=== PATIENT | male | born 1980 | race Caucasian/White ===

== ENCOUNTER 2017-10-25 16:08 | Inpatient (IN) | payer OTHER ==
[~2017-10-25] VITALS: Ht 175.3 cm; Wt 121.6 kg
[2017-10-25] MEDS ORDERED: NACL 0.9% 1,000 ML IV ONE (16:20)
[2017-10-25] MEDS ORDERED: ASPIRIN 325 MG TAB PO ONE (16:20)
[2017-10-25] MEDS ORDERED: VANCOMYCIN 1,000 MG in DEXTROSE 5% 250 ML IV ONE (16:25)
[2017-10-25] MEDS ORDERED: MORPHINE SULFATE 4 MG/ML SYR IVP ONE (16:25)
[2017-10-25] MEDS ORDERED: PIPERACILLIN/TAZOBACTAM 3.375 GM in DEXTROSE 5% 50 ML IV ONE (16:25)
[2017-10-25 16:26] VITALS: BP 108/68
[2017-10-25] MEDS ORDERED: INSULIN REGULAR, HUMAN 100 UNIT/ML VIAL IVP ONE (16:35)
--- NOTE | 2017-10-25 16:37 | NUR ---
PT TAKEN TO CT VIA GURNEY BY WET TRIMMER MEHRDAD
--- NOTE | 2017-10-25 16:45 | NUR ---
PATIENT PRESENTS Tc/o general weakness, right 4th digit swelling redness, fever, bodyaches, malaise x 2 days hx---dm, htn, ANXIETY, CVA, R 3 TOES AMPUTATION rx----. DENIES N/V/D; SKIN IS PINK/WARM/DRY; AAOX4 ; LUNGS CLEAR BL; HR EVEN AND REGULAR; PT DENIES ANY FEVER, CP, SOB, OR COUGH AT THIS TIME; PATIENT STATES PAIN OF 10/10 AT THIS TIME; VSS; PATIENT POSITIONED FOR COMFORT; HOB ELEVATED; BEDRAILS UP X2; BED DOWN. ER MD MADE AWARE OF PT STATUS.
[2017-10-25 17:00] LABS: ANION GAP 18.7 (8-16); CARBON DIOXIDE 23.5 mmol/L (21-32); CREATININE 1.3 mg/dL (0.7-1.3); POTASSIUM 4.2 mmol/L (3.5-5.1)
[2017-10-25 17:13] LABS: BASOPHILS # (AUTO) 0.1 K/uL (0.00-0.22); EOSINOPHILS # (AUTO) 0.2 K/uL (0-0.4); EOSINOPHILS % (AUTO) 2.2 % (0.0-4.0); HEMATOCRIT 41.8 % (36-52); HEMOGLOBIN 13.7 g/dL (12.0-18.0); LYMPHOCYTES % (AUTO) 21.2 % (20.5-51.1); MEAN CORPUSCULAR HEMOGLOBIN 27 pg (27-31); MEAN CORPUSCULAR HGB CONC 33 g/dL (33-37); MEAN CORPUSCULAR VOLUME 81.7 fL (80-94); MONOCYTES # (AUTO) 0.4 K/uL (0.8-1.0); MONOCYTES % (AUTO) 4.2 % (1.7-9.3); NEUTROPHILS # (AUTO) 6.7 K/uL (1.8-7.7); NEUTROPHILS % (AUTO) 71.4 % (42.2-75.2); PLATELET COUNT (AUTO) 355 K/uL (140-450); RED BLOOD CELL COUNT(AUTO) 5.12 MIL/uL (4.20-6.10); RED CELL DISTRIBUTION WIDTH 11.9 % (11.6-13.7); WHITE BLOOD COUNT (AUTO) 9.4 K/uL (4.8-10.8)
[2017-10-25] MEDS ORDERED: VANCOMYCIN 1,000 MG VIAL ONE (17:13)
[2017-10-25] MEDS ORDERED: PIPERACILLIN/TAZOBACTAM 3.375 GM VIAL IV ONE (17:13)
[2017-10-25 17:16] LABS: ALBUMIN 2.9 g/dL (3.4-5.0); TOTAL BILIRUBIN 0.3 mg/dL (0.0-1.0)
[2017-10-25] MEDS ORDERED: NACL 0.9% 3,000 ML IV ONE (17:20)
[2017-10-25] MEDS ORDERED: HUM SUBQ (17:42)
[2017-10-25] MEDS ORDERED: ALPR0.5T2 PO (17:42)
[2017-10-25] MEDS ORDERED: ONDANSETRON 4 MG/2 ML VIAL IM/IVP PRN (17:55)
[2017-10-25] MEDS ORDERED: HYDROcodone/APAP 7.5/325 MG 1 TAB PO PRN (17:55)
[2017-10-25] MEDS ORDERED: DOCUSATE SODIUM 100 MG GELCAP PO PRN (17:55)
[2017-10-25] MEDS ORDERED: ACETAMINOPHEN 325 MG TAB PO PRN (17:55)
[2017-10-25] MEDS ORDERED: LORazepam 0.5 MG TAB PO PRN (17:55)
--- NOTE | 2017-10-25 18:00 | NUR ---
PER PT "FEELING BETTER" PAIN 5/10 POST MEDICATION, AT BEDSIDE, WILL CONTINUE TO MONITOR
[2017-10-25] MEDS ORDERED: DEXTROSE 50% 50 ML SYR IVP PRN (18:05)
[2017-10-25] MEDS ORDERED: NACL 0.9% 1,000 ML IV SCH (18:10)
--- NOTE | 2017-10-25 18:35 | NUR ---
RECEIVED PATIENT FROM ER VIA GURNEY. PATIENT AMBULATED TO THE BED. RECEIVED BEDSIDE REPORT FROM SHE EMERY. PATIENT IS AAOX4, NO SIGNS AND SYMPTOMS OF ACUTE DISTRESS NOTED AT THIS TIME. PATIENT HAS IV TO THE RIGHT HAND 20G, INFUSING ZOSYN AT THIS TIME AND HAS NS BOLUS. ORIENTED PATIENT TO THE ROOM, EXPLAINED CALL LIGHT AND PATIENT VERBALIZED UNDERSTANDING. BED IN LOWEST POSITION, SIDERAILS UP X2, CALL LIGHT PLACED WITHIN REACH. WILL CONTINUE TO MONITOR.
[2017-10-25 18:39] LABS: APPEARANCE,URINE CLEAR (CLEAR); BILIRUBIN,URINE NEGATIVE (NEGATIVE); BLOOD, URINE TRACE-I (NEGATIVE); COLOR,URINE YELLOW (YELLOW); LEUKOCYTE ESTERASE ,URINE NEGATIVE (NEGATIVE); NITRITE, URINE NEGATIVE (NEGATIVE); UGLUCOSE 3+ (NEGATIVE)
[2017-10-25 18:40] LABS: ANION GAP 20.2 (8-16); CARBON DIOXIDE 22.2 mmol/L (21-32); CREATININE 1.4 mg/dL (0.7-1.3); POTASSIUM 4.4 mmol/L (3.5-5.1)
--- NOTE | 2017-10-25 18:40 | NUR ---
Patient will be admitted to care of DR. LADD .WILL BE GOING TO TELE . Will go to room 105B . Belongings list completed. Report to SHE SIERRA . 3L ORDER WAS NOT ADMINISTERED DUE UNAVAILABLE ADDITIONAL IV ACCESS DUE TO VARIOUS MEDICATION ADMINISTRATION.
[2017-10-25 18:53] LABS: RBC,URINE 0-5 (RARE) /HPF (0-5); WBC,URINE 0-5 (RARE) /HPF (0-5)
[2017-10-25 18:57] LABS: FREE T4 (FREE THYROXINE) 0.96 ng/dL (0.76-1.46); MAGNESIUM 1.8 mg/dL (1.8-2.4); PHOSPHORUS 2.6 mg/dL (2.5-4.9); THYROID STIMULATING HORMONE 2.25 uIU/mL (0.34-3.74)
[2017-10-25 19:01] LABS: PROTHROMBIN TIME 9.8 secs (10.8-13.4)
[2017-10-25 19:04] LABS: BARBITURATE, URINE NEG. ng/ml (NEG <=200); BENZODIAZEPINE, URINE NEG. ng/mL (NEG <=200); CANNABINOID, URINE NEG. ng/mL (NEG <=50); COCAINE, URINE NEG. ng/mL (NEG <=300); OPIATE, URINE NEG. ng/mL (NEG <=2000); PHENCYCLIDINE SCREEN,URINE NEG. ng/mL (NEG <=25)
[2017-10-25 19:30] VITALS: BP 130/87
--- NOTE | 2017-10-25 19:33 | NUR ---
RECEIVED PT IN STABLE CONDITION FROM AM NURSE. PT IS A NEW ADMIT . AWAKE,ALERT AND ORIENTED X4. AMBULATORY. TELE -SR. CAME DUE TO CELLULITIS RT RT HAND,CHEST PAIN. VANCOMYCIN IV STILL INFUSING , ER STARTED ON THE RT FA#20. CLEAR AND PATENT. MRSA NARES SPECIMEN COLLECTED . TO BE SEND TO LAB.ORIENTED TO HOSPITAL ROUTINES. VISITING HOURS, USE OF CALL LIGHT W/C IS PLACED WITHIN EASY REACH. BED ON LOW POSITION. PLAN OF CARE DISCUSSED AND VERBALIZED UNDERSTANDING. URINAL ALSO WITHIN REACH. WILL CONTINUE TO MONITOR.
--- NOTE | 2017-10-25 19:33 | NUR ---
ENDORSED PATIENT TO PRODUCT MARKETING ENGINEER RN FOR CONTINUITY OF CARE. PATIENT IN STABLE CONDITION.
--- NOTE | 2017-10-25 20:00 | NUR ---
DR. OSORIO, RESIDENT SEEN PT . ACCORDING TO INTERVIEWED PT HAS ALLERGY TO PCN. SO ZOSYN TO BE DC.D AND BE CHANGED
--- NOTE | 2017-10-25 20:30 | NUR ---
XR TECH TO GET PT FOR SOME TEST, CAROTID US, US ARTERIAL BLE AND US VENOUS BLE BUT PT WANTS TO GET PAIN MED FIRST. WILL CALL X RAY DEPT WHEN PT IS READY AFTER THE PAIN MED IS GIVEN.
[2017-10-25] MEDS ORDERED: KETOROLAC 15 MG/ML VIAL IM PRN (20:45)
[2017-10-25] MEDS ORDERED: INSU100S45 SUBQ (20:50)
[2017-10-25] MEDS: NACL 0.9% 1,000 ML IV SCH (20:52)
[2017-10-25] MEDS ORDERED: INSU100S53 SC (20:52)
[2017-10-25] MEDS ORDERED: ASPI-1677 PO (20:56)
[2017-10-25] MEDS ORDERED: MECLIZINE 25 MG TAB PO PRN (21:00)
[2017-10-25] MEDS: BLOOD GLUCOSE MONITORING 1 DEV DEV FS SCH (21:03)
[2017-10-25] MEDS: MORPHINE SULFATE 2 MG/ML SYR IVP PRN (21:12)
[2017-10-25] MEDS: INSULIN LANTUS 100 UNITS/ML 10 ML VIAL SUBQ SCH (21:49)
[2017-10-25] MEDS: INSULIN LISPRO SLIDING SCALE 100 UNITS/ML VIAL SUBQ PRN (21:50)
--- NOTE | 2017-10-25 22:50 | NUR ---
CALLED XR DEPT FOR PT US VENOUS BLE AND CAROTID EPHRAIM AND US ARTERIAL BLE, THE TECH STILL IN ER FOR SOME TEST . WILL FOLLOW UP AGAIN LATER.
[2017-10-25] MEDS ORDERED: NITROGLYCERIN 0.4 MG TAB SL PRN (23:00)
[2017-10-25] MEDS: LEVOFLOXACIN 750 MG/D5W PREMIX 150 ML IV SCH (23:44)
[2017-10-25 23:55] VITALS: BP 141/81
[2017-10-26] MEDS ORDERED: PIPER/TAZO 3.375GM/D5W PREMIX 50 ML IV SCH
[2017-10-26] MEDS ORDERED: PIPERACILLIN/TAZOBACTAM 3.375 GM in DEXTROSE 5% 50 ML IV SCH ×2
--- NOTE | 2017-10-26 00:43 | NUR ---
DR. OSORIO, RESIDENT MADE AWARE THAT THE US CAROTID EPHRAIM, VENOUS BLE, ARTERIAL BLE NOT DONE YET. WILL BE DONE HEATHER AM . HE SAID IT IS OK, IT'S A ROUTINE ORDER.
[2017-10-26] MEDS: MORPHINE SULFATE 2 MG/ML SYR IVP PRN ×3 (00:53→08:27)
[2017-10-26] MEDS ORDERED: LACTULOSE 20 GM/30 ML UDC PO ONE (01:20)
[2017-10-26] MEDS: NACL 0.9% 1,000 ML IV SCH (03:36)
[2017-10-26 03:45] VITALS: BP 150/86
[2017-10-26] MEDS ORDERED: CLINDAMYCIN 600 MG/4 ML VIAL ONE (04:27)
[2017-10-26] MEDS: CLINDAMYCIN 600 MG in DEXTROSE 5% 50 ML IV SCH ×3 (04:56→20:34)
--- NOTE | 2017-10-26 04:59 | NUR ---
PT AWAKE AND C/O PAIN ON THE RT HAND FINGER, MEDICATED ORDERED.
[2017-10-26] MEDS ORDERED: LACTULOSE 20 GM/30 ML UDC PO SCH (05:15)
[2017-10-26] MEDS: BLOOD GLUCOSE MONITORING 1 DEV DEV FS SCH ×4 (06:16→20:27)
[2017-10-26] MEDS: INSULIN LISPRO SLIDING SCALE 100 UNITS/ML VIAL SUBQ PRN ×3 (06:17→20:31)
--- NOTE | 2017-10-26 06:17 | NUR ---
BLOOD SUGAR WAS CHECKED THIS AM RESULT 313. INSULIN COVERAGE GIVEN ORDERED
--- NOTE | 2017-10-26 07:15 | NUR ---
ENDORSED PT IN STABLE CONDITION TO AM NURSE.
--- NOTE | 2017-10-26 07:16 | NUR ---
RECEIVED REPORT FROM TAPER AND FLOATER NURSE AT BEDSIDE FOR CONTINUITY OF CARE. PT IS SLEEPING. IV ON R FA 20 NS INFUSING AT 120ML/HR. K PAD ON HIS R HAND; CELLULITIS ON HIS R HAND, 4TH FINGER SWOLLEN. PT ON TELE, SR. LBM THS MORNING. NO SIGNS OF DISTRESS. WILL CONTINUE TO MONITOR PT.
[2017-10-26 08:00] VITALS: BP 116/71
--- NOTE | 2017-10-26 08:00 | NUR ---
V/S WITHIN NORMAL RANGE. C/O PAIN IN R HAND. 03/08. WILL MEDICATE ALONG WITH MORNING MEDS.
[2017-10-26] MEDS: ASPIRIN 81 MG TAB.CHEW PO SCH (08:26)
[2017-10-26] MEDS: METOPROLOL SUCCINATE 50 MG TABER PO SCH (08:26)
[2017-10-26] MEDS: LISINOPRIL 20 MG TAB PO SCH (08:26)
--- NOTE | 2017-10-26 08:30 | NUR ---
ADMINISTERED MORNING MEDS. PT TOLERATED WELL. WILL CONTINUE TO MONITOR PT.
[2017-10-26 08:34] LABS: T4 (THYROXINE) 6.3 ug/dL (4.5-12.0)
[2017-10-26] MEDS ORDERED: DOCUSATE SODIUM 100 MG GELCAP PO PRN (09:05)
[2017-10-26] MEDS ORDERED: LORazepam 2 MG/ML VIAL IVP PRN (09:05)
[2017-10-26] MEDS ORDERED: HYDROcodone/APAP 7.5/325 MG 1 TAB PO PRN (09:05)
[2017-10-26] MEDS ORDERED: ONDANSETRON 4 MG/2 ML VIAL IVP PRN (09:05)
[2017-10-26 09:23] LABS: BASOPHILS # (AUTO) 0.2 K/uL (0.00-0.22); BASOPHILS % (AUTO) 2.2 % (0.0-2.0); EOSINOPHILS # (AUTO) 0.2 K/uL (0-0.4); EOSINOPHILS % (AUTO) 2.5 % (0.0-4.0); HEMATOCRIT 40.5 % (36-52); HEMOGLOBIN 13.5 g/dL (12.0-18.0); LYMPHOCYTES # (AUTO) 1.8 K/uL (2.0-11.5); MEAN CORPUSCULAR HEMOGLOBIN 27 pg (27-31); MEAN CORPUSCULAR HGB CONC 33 g/dL (33-37); MEAN CORPUSCULAR VOLUME 81.8 fL (80-94); MONOCYTES # (AUTO) 0.5 K/uL (0.8-1.0); MONOCYTES % (AUTO) 5.6 % (1.7-9.3); NEUTROPHILS # (AUTO) 5.8 K/uL (1.8-7.7); NEUTROPHILS % (AUTO) 68.7 % (42.2-75.2); PLATELET COUNT (AUTO) 305 K/uL (140-450); RED BLOOD CELL COUNT(AUTO) 4.95 MIL/uL (4.20-6.10); WHITE BLOOD COUNT (AUTO) 8.5 K/uL (4.8-10.8)
[2017-10-26 10:18] LABS: ANION GAP 11.7 (8-16); CARBON DIOXIDE 29.8 mmol/L (21-32); CREATININE 1.2 mg/dL (0.7-1.3); POTASSIUM 4.5 mmol/L (3.5-5.1)
[2017-10-26 10:22] LABS: MAGNESIUM 1.9 mg/dL (1.8-2.4); PHOSPHORUS 2.7 mg/dL (2.5-4.9)
--- NOTE | 2017-10-26 10:28 | NUR ---
FAXED INITIAL REVIEW TO [facility] [phone] PHONE [phone] X [phone] MARY
--- NOTE | 2017-10-26 10:41 | NUR ---
ECHOCARDIOGRAM BEING DONE NOW.
[2017-10-26] MEDS ORDERED: ACETAMINOPHEN 325 MG TAB PO PRN (11:10)
--- NOTE | 2017-10-26 11:37 | NUR ---
FROM [facility], REFERENCE NUMBER IS [phone].
[2017-10-26 12:00] VITALS: BP 114/81
--- NOTE | 2017-10-26 12:00 | NUR ---
US HERE FOR PROCEDURE AT BEDSIDE. PT IS TOLERATING WELL. WILL BE BACK.
--- NOTE | 2017-10-26 12:19 | NUR ---
PATIENT HAS BEEN SCREENED AND CATEGORIZED MODERATE NUTRITION RISK. PATIENT WILL BE SEEN WITHIN 3-5 DAYS OF ADMISSION. 10/28/17 - 10/30/[address]
--- NOTE | 2017-10-26 14:46 | NUR ---
PT RESTING COMFORTABLY. NO SIGNS OF DISTRESS NOTED. WILL CONTINUE TO MONITOR PT.
[2017-10-26 16:00] VITALS: BP 107/68
[2017-10-26] MEDS ORDERED: ETHYL CHLORIDE 105 ML SPR TP SCH (16:26)
[2017-10-26] MEDS: KETOROLAC 30 MG/ML VIAL IVP PRN (17:18)
--- NOTE | 2017-10-26 17:45 | NUR ---
PT SIGNED CONSENT FOR BEDSIDE PROCEDURE: INCISION AND DRAINAGE OF R HAND, 4TH FINGER. DR WELCH AND ANDREY EXPLAINED PROCEDURE. WE DID A QUICK TIME OUT. VERIFIED AND STARTED PROCEDURE. PT TOLERATED WELL. IT IS NOW WRAPPED IN ISLAND DRESSING. WILL CONTINUE TO MONITOR PT.
--- NOTE | 2017-10-26 18:51 | NUR ---
PT ATE DINNER AND IS RESTING COMFORTABLY. PER PT, HE IS STILL IN PAIN. PRESSURE IS RELIEVED BUT STILL HAS PAIN. WILL CHECK ON PAIN MEDS.
--- NOTE | 2017-10-26 19:05 | NUR ---
PT ARRIVED ON THE UNIT FROM ICU, ACCOMPANIED BY 2 ICU NURSES. PT IS AWAKE AND ORIENTED. MOM AT BEDSIDE. PT HAS BANDAGES ON BILATERAL AXILLA, AND BANDAGES ON BILATERAL GROIN AND FEMORAL AREA AND SACRAL, LOWER ABD. PT HAS PEREZ CATH, CLEAR YELLOW URINE. PT HAS IV ON L WRIST 18G. IT IS INFILTRATED. NS AT 100ML/HR. SCD'S ON. WILL ENDORSE PT TO THE CATALOGING ASSISTANT NURSE. PAIN LEVEL IS TOLERABLE. Addendum: 10/26/17 at 1951 by Maki Kent RN WRONG PT. PLEASE DISREGARD. JAQUELINE NOWAK
[2017-10-26] MEDS: HYDROcodone/APAP 10/325 MG 1 TAB TAB PO PRN (19:14)
--- NOTE | 2017-10-26 19:15 | NUR ---
ENDORSED PT TO THE SILVICULTURE TEACHER NURSE AT BEDSIDE. PT IN STABLE CONDITION.
--- NOTE | 2017-10-26 19:16 | NUR ---
RECEIVED REPORT FROM DAY SHIFT NURSE AT BEDSIDE FOR CONTINUITY OF CARE. PT IS SLEEPING. IV ON R FA 20 SL. K PAD ON HIS R HAND; CELLULITIS ON HIS R HAND, 4TH FINGER S/P I&D. PT ON TELE, SR. LBM THS MORNING. NO SIGNS OF DISTRESS. WILL CONTINUE TO MONITOR PT. INITIAL ASSESSMENT COMPLETED. PLAN OF CARE DISCUSSED WITH PT, VERBALIZED UNDERSTANDING. ALL SAFETY PRECAUTIONS MET, CALL LIGHT WITHIN REACH, WILL CONTINUE TO MONITOR
[2017-10-26 20:00] VITALS: BP 112/70
[2017-10-26] MEDS: INSULIN LANTUS 100 UNITS/ML 10 ML VIAL SUBQ SCH (20:31)
[2017-10-26] MEDS: ATORVASTATIN 20 MG TAB PO SCH (20:33)
[2017-10-26] MEDS: LEVOFLOXACIN 750 MG/D5W PREMIX 150 ML IV SCH (23:50)
[2017-10-27] VITALS: BP 110/68
[2017-10-27] MEDS: KETOROLAC 30 MG/ML VIAL IVP PRN ×2 (00:30→06:30)
[2017-10-27 04:00] VITALS: BP 116/62
[2017-10-27] MEDS: CLINDAMYCIN 600 MG in DEXTROSE 5% 50 ML IV SCH ×3 (04:50→20:54)
[2017-10-27] MEDS: INSULIN LISPRO SLIDING SCALE 100 UNITS/ML VIAL SUBQ PRN ×4 (06:03→21:55)
[2017-10-27] MEDS: BLOOD GLUCOSE MONITORING 1 DEV DEV FS SCH ×4 (06:34→21:50)
[2017-10-27 07:08] LABS: BASOPHILS # (AUTO) 0.2 K/uL (0.00-0.22); BASOPHILS % (AUTO) 1.9 % (0.0-2.0); EOSINOPHILS # (AUTO) 0.2 K/uL (0-0.4); HEMATOCRIT 37.3 % (36-52); HEMOGLOBIN 12.7 g/dL (12.0-18.0); LYMPHOCYTES # (AUTO) 2.2 K/uL (2.0-11.5); LYMPHOCYTES % (AUTO) 26.3 % (20.5-51.1); MEAN CORPUSCULAR HEMOGLOBIN 28 pg (27-31); MEAN CORPUSCULAR HGB CONC 34 g/dL (33-37); MEAN CORPUSCULAR VOLUME 81.5 fL (80-94); MONOCYTES # (AUTO) 0.7 K/uL (0.8-1.0); MONOCYTES % (AUTO) 8.7 % (1.7-9.3); NEUTROPHILS % (AUTO) 60.1 % (42.2-75.2); PLATELET COUNT (AUTO) 304 K/uL (140-450); RED BLOOD CELL COUNT(AUTO) 4.57 MIL/uL (4.20-6.10); RED CELL DISTRIBUTION WIDTH 11.9 % (11.6-13.7); WHITE BLOOD COUNT (AUTO) 8.3 K/uL (4.8-10.8)
[2017-10-27 07:27] LABS: ALBUMIN 2.3 g/dL (3.4-5.0); ANION GAP 11.8 (8-16); CARBON DIOXIDE 28.6 mmol/L (21-32); CREATININE 1.1 mg/dL (0.7-1.3); MAGNESIUM 1.9 mg/dL (1.8-2.4); PHOSPHORUS 3.3 mg/dL (2.5-4.9); POTASSIUM 4.4 mmol/L (3.5-5.1); TOTAL BILIRUBIN 0.3 mg/dL (0.0-1.0)
--- NOTE | 2017-10-27 07:29 | NUR ---
REPORT GIVEN TO DAY NURSE FOR CONTINUITY OF CARE, PT IN STABLE CONDITION. NO S/S OF DISTRESS NOTED.
--- NOTE | 2017-10-27 07:30 | NUR ---
RECEIVED REPORT FROM FLUX MIXER NURSE. PATIENT LYING IN BED SLEEPING, AROUSABLE BY VOICE. NO DISTRESS NOTED. DENIES ANY PAIN AT THIS TIME. RESPIRATIONS EVEN, UNLABORED, ON ROOM AIR. AAOX4, CALM, COOPERATIVE, SKIN COLOR APPROPRIATE TO ETHNICITY, WARM TO TOUCH. HAS RIGHT HAND 4TH FINGER CELLULITIS S/P I&D YESTERDAY THAT IS ANSLEY AT THIS TIME. RIGHT HAND AND FINGERS NON-PITTING EDEMA NOTED. RIGHT 3RD TOE AMPUTATION NOTED. LUNGS CTA ON ALL LOBES. ABDOMEN SOFT, NON-DISTENDED. REVIEWED PLAN OF CARE WITH PATIENT. PATIENT VERBALIZED UNDERSTANDING. SAFETY MEASURES IN PLACE, CALL LIGHT WITHIN REACH, FALL PREVENTIONS IN PLACE. WILL CONTINUE TO MONITOR.
[2017-10-27 08:00] VITALS: BP 111/72
[2017-10-27] MEDS: ASPIRIN 81 MG TAB.CHEW PO SCH (09:44)
[2017-10-27] MEDS: METOPROLOL SUCCINATE 50 MG TABER PO SCH (09:45)
[2017-10-27] MEDS: LISINOPRIL 20 MG TAB PO SCH (09:45)
--- NOTE | 2017-10-27 10:00 | NUR ---
PATIENT LYING IN BED SLEEPING, AROUSABLE BY VOICE. NO DISTRESS NOTED. DENIES ANY PAIN AT THIS TIME. SCHEDULED MEDICATIONS DUE GIVEN. SAFETY MEASURES IN PLACE, CALL LIGHT WITHIN REACH, FALL PREVENTIONS IN PLACE. WILL CONTINUE TO MONITOR.
[2017-10-27] MEDS: HYDROcodone/APAP 10/325 MG 1 TAB TAB PO PRN ×2 (12:35→21:47)
--- NOTE | 2017-10-27 12:36 | NUR ---
PATIENT SITTING IN BED WITH LUNCH TRAY IN FRONT. NO DISTRESS NOTED. COMPLAINTS OF 6/10 RIGHT HAND PAIN, NORCO GIVEN PER ORDERS. SCHEDULED ANTIBIOTIC MEDICATION GIVEN. SAFETY MEASURES IN PLACE, CALL LIGHT WITHIN REACH. WILL CONTINUE TO MONITOR.
--- NOTE | 2017-10-27 15:32 | NUR ---
PATIENT LYING IN BED SLEEPING, AROUSABLE BY VOICE. NO DISTRESS NOTED. DENIES ANY PAIN AT THIS TIME. CONDITION UNCHANGED. WILL CONTINUE TO MONITOR.
[2017-10-27 16:00] VITALS: BP 100/60
--- NOTE | 2017-10-27 17:30 | NUR ---
PATIENT LYING IN BED SLEEPING, AROUSABLE BY VOICE. NO DISTRESS NOTED. DENIES ANY PAIN AT THIS TIME. CONDITION UNCHANGED. WILL CONTINUE TO MONITOR.
--- NOTE | 2017-10-27 18:30 | NUR ---
PATIENT SITTING IN BED WATCHING TV WITH DINNER TRAY IN FRONT. NO DISTRESS NOTED. DENIES ANY PAIN. CONDITION UNCHANGED. WILL CONTINUE TO MONITOR.
[2017-10-27 20:00] VITALS: BP 116/64
--- NOTE | 2017-10-27 20:00 | NUR ---
GAVE REPORT TO IN STORE BANKER NURSE FOR CONTINUITY OF CARE. PATIENT IN STABLE CONDITION.
--- NOTE | 2017-10-27 20:01 | NUR ---
RECEIVED REPORT FROM DAY SHIFT NURSE LAMONTE-SHE. PT SLEEPING AT THIS TIME, AT BEDSIDE. AOX4 ON ROOM AIR. RIGHT HAND #22G SALINE LOCK, FLUSHING WELL BUT PAINFUL TO THE PT UNLESS FLUSHED SLOWLY. DISCUSSED PLAN OF CARE. BED IN LOWEST POSITION. CALL LIGHT WITHIN REACH. WILL CONTINUE TO MONITOR
[2017-10-27] MEDS: NYSTATIN/TRIAMCINOLONE CRM 15 GM TUBE TP SCH (20:55)
[2017-10-27] MEDS: ATORVASTATIN 20 MG TAB PO SCH (20:58)
[2017-10-27] MEDS ORDERED: INSULIN LANTUS 100 UNITS/ML 10 ML VIAL SUBQ SCH (21:00)
[2017-10-27] MEDS: LEVOFLOXACIN 750 MG/D5W PREMIX 150 ML IV SCH (22:04)
--- NOTE | 2017-10-27 22:19 | NUR ---
SPOKE WITH DR. ALMONTE CONCERNING TOMORROW'S CONSULT. PT WOULD LIKE TO KNOW WHAT TIME HE COULD BE EXPECTING THE MD. DR. ALMONTE SAID HE WOULD BE THERE TO SEE HIM BEFORE NOON. PT AGREED TO BE WAITING FOR HIM TOMORROW. PT IS ANXIOUS TO LEAVE BECAUSE TOMORROW IS HIS DAUGHTER'S 17TH BIRTHDAY AND WOULD NOT WANT TO MISS IT.
[2017-10-28] VITALS: BP 141/88
--- NOTE | 2017-10-28 | NUR ---
PT TOLERATED ALL SCHEDULED MEDICATIONS WELL. REFUSED LIPITOR. VITAL SIGNS TOLERATED WELL. CONTINUED TO SLEEP IN BED. NO S/S OF RESPIRATORY DISTRESS OR DISCOMFORT. BED IN LOWEST POSITION. WILL CONTINUE TO MONITOR.
--- NOTE | 2017-10-28 02:09 | NUR ---
PT CONTINUES TO SLEEP. WILL CONTINUE TO MONITOR.
--- NOTE | 2017-10-28 03:24 | NUR ---
PT CONTINUES TO SLEEP AT THIS TIME. WILL CONTINUE TO MONITOR.
[2017-10-28] MEDS ORDERED: CLINDAMYCIN 600 MG/4 ML VIAL ONE (04:02)
[2017-10-28] MEDS: CLINDAMYCIN 600 MG in DEXTROSE 5% 50 ML IV SCH (04:28)
--- NOTE | 2017-10-28 04:30 | NUR ---
SCHEDULED MEDICATION GIVEN. PT SLEEPING AT THIS TIME. WILL CONTINUE TO MONITOR.
[2017-10-28] MEDS: BLOOD GLUCOSE MONITORING 1 DEV DEV FS SCH ×2 (06:06→11:23)
[2017-10-28] MEDS: INSULIN LISPRO SLIDING SCALE 100 UNITS/ML VIAL SUBQ PRN ×2 (06:10→11:22)
[2017-10-28] MEDS: HYDROcodone/APAP 10/325 MG 1 TAB TAB PO PRN ×2 (06:16→10:34)
--- NOTE | 2017-10-28 06:18 | NUR ---
BLOOD GLUCOSE 311. INSULIN GIVEN PER SLIDING SCALE. WILL CONTINUE TO MONITOR.
--- NOTE | 2017-10-28 07:00 | NUR ---
ENDORSED PT CARE TO DAY SHIFT NURSE VISHAL. PT STABLE AT THIS TIME.
--- NOTE | 2017-10-28 07:00 | NUR ---
ASSUMED CONTINUITY OF CARE. NO SIGNS AND SYMPTOMS OF ACUTE DISTRESS NOTED. INITIAL ASSESSMENT DONE. KEEP COMFORTABLE ON BED. EXPLAINED DIAGNOSIS, PLAN OF CARE, PAIN MANAGEMENT TEACHING, USE OF CALL LIGHT/BED/TV/BATHROOM. VERBALIZED UNDERSTANDING. CALL LIGHT WITHIN REACH.
[2017-10-28 07:48] LABS: BASOPHILS # (AUTO) 0.1 K/uL (0.00-0.22); BASOPHILS % (AUTO) 1.4 % (0.0-2.0); EOSINOPHILS # (AUTO) 0.2 K/uL (0-0.4); EOSINOPHILS % (AUTO) 2.7 % (0.0-4.0); HEMOGLOBIN 12.9 g/dL (12.0-18.0); LYMPHOCYTES % (AUTO) 28.7 % (20.5-51.1); MEAN CORPUSCULAR HEMOGLOBIN 28 pg (27-31); MEAN CORPUSCULAR HGB CONC 34 g/dL (33-37); MEAN CORPUSCULAR VOLUME 82.1 fL (80-94); MONOCYTES # (AUTO) 0.5 K/uL (0.8-1.0); MONOCYTES % (AUTO) 7.3 % (1.7-9.3); NEUTROPHILS # (AUTO) 4.2 K/uL (1.8-7.7); NEUTROPHILS % (AUTO) 59.9 % (42.2-75.2); PLATELET COUNT (AUTO) 307 K/uL (140-450); RED BLOOD CELL COUNT(AUTO) 4.63 MIL/uL (4.20-6.10); RED CELL DISTRIBUTION WIDTH 11.7 % (11.6-13.7)
[2017-10-28 08:00] VITALS: BP 117/81
[2017-10-28] MEDS: LISINOPRIL 20 MG TAB PO SCH (08:38)
[2017-10-28] MEDS: ASPIRIN 81 MG TAB.CHEW PO SCH (08:38)
[2017-10-28] MEDS: METOPROLOL SUCCINATE 50 MG TABER PO SCH (08:38)
--- NOTE | 2017-10-28 08:51 | NUR ---
DR. ALMONTE CAME, REVIEWED PT. CHART, SEEN PT., AND SPOKE TO DR. FAROOQ.
[2017-10-28] MEDS ORDERED: INSULIN LANTUS 100 UNITS/ML 10 ML VIAL SUBQ SCH ×2 (09:00→21:00)
[2017-10-28 09:01] LABS: MAGNESIUM 1.8 mg/dL (1.8-2.4); PHOSPHORUS 2.9 mg/dL (2.5-4.9)
[2017-10-28] MEDS: NYSTATIN/TRIAMCINOLONE CRM 15 GM TUBE TP SCH (09:02)
[2017-10-28 09:22] LABS: ANION GAP 14.2 (8-16); CARBON DIOXIDE 26.3 mmol/L (21-32); CREATININE 1.1 mg/dL (0.7-1.3); POTASSIUM 4.5 mmol/L (3.5-5.1)
[2017-10-28] MEDS ORDERED: GLUC-321 MC (10:50)
[2017-10-28] MEDS ORDERED: NORC10 PO (10:50)
[2017-10-28] MEDS ORDERED: LISI-420 PO (10:50)
[2017-10-28] MEDS ORDERED: NYSTRC TP (10:50)
[2017-10-28] MEDS ORDERED: ATOR20TA40 PO (10:50)
[2017-10-28] MEDS ORDERED: LACT1.4C PO (10:50)
[2017-10-28] MEDS ORDERED: LEVO750T2 PO (10:50)
[2017-10-28] MEDS ORDERED: HUMSLIDE SUBQ (10:50)
[2017-10-28] MEDS ORDERED: GLUC-805 FS (10:50)
[2017-10-28] MEDS ORDERED: BLOO1EAC40 MC (10:50)
[2017-10-28] MEDS ORDERED: CLIN300C2 PO (10:50)
[2017-10-28] MEDS ORDERED: LANC-947 MC (10:50)
[2017-10-28] MEDS ORDERED: DOCU-299 PO (10:50)
--- NOTE | 2017-10-28 12:00 | NUR ---
D/C HOME VIA WHEELCHAIR, ACCOMPANIED BY PT. . AWAKE, ALERT, AND ORIENTED X4. SPEECH CLEAR. NO C/O PAIN. NO SOB, NOTED. IN STABLE CONDITION. INFORMED CHARGE NURSE LOUIE PERAZA.
== END 2017-10-28 12:00 | disposition home or self-care (01) | DRG 383 ==
LOC: MED 16:08 → MTU 18:02
PROVIDERS: ADMIT Family Medicine Sports Medicine; ATTEND Family Medicine Sports Medicine
DX: L03.011 Cellulitis of right finger (principal); N17.0 Acute kidney failure with tubular necrosis; K85.90 Acute pancreatitis without necrosis or infection, unspecified; E44.0 Moderate protein-calorie malnutrition; E72.4 Disorders of ornithine metabolism; I42.9 Cardiomyopathy, unspecified; K31.84 Gastroparesis; K21.9 Gastro-esophageal reflux disease without esophagitis; D68.59 Other primary thrombophilia; E11.65 Type 2 diabetes mellitus with hyperglycemia; M94.0 Chondrocostal junction syndrome [Tietze]; K72.90 Hepatic failure, unspecified without coma; E78.5 Hyperlipidemia, unspecified; F17.210 Nicotine dependence, cigarettes, uncomplicated; E11.51 Type 2 diabetes mellitus with diabetic peripheral angiopathy without gangrene; E11.43 Type 2 diabetes mellitus with diabetic autonomic (poly)neuropathy; E66.9 Obesity, unspecified; F15.10 Other stimulant abuse, uncomplicated; L02.512 Cutaneous abscess of left hand; Z86.73 Personal history of transient ischemic attack (TIA), and cerebral infarction without residual deficits; Z88.0 Allergy status to penicillin; Z91.14 Patient's other noncompliance with medication regimen; I25.2 Old myocardial infarction; Z79.4 Long term (current) use of insulin; Z68.39 Body mass index [BMI] 39.0-39.9, adult
CPT/HCPCS: 36415; 70450; 71045; 73130; 76881; 80048; 80053; 80305; 81001; 82140; 82150; 82948; 83036; 83605; 83690; 83735; 83880; 84100; 84436; 84439; 84443; 84479; 84484; 85025; 85610; 85730; 87040; 87070; 87075; 87081; 87086; 87205; 93005; 93880; 93925; 93970; 96365; 96367; 96375; 99291; J1815; J1885; J1956; J2270; J2543; J3370; J3490; J7030; J7060; Q0092

== ENCOUNTER 2021-06-13 00:45 | Emergency (ER) | payer MEDICAID, OTHER ==
[~2021-06-13] VITALS: Ht 180.3 cm; Wt 147.4 kg
[~2021-06-13 00:45] MED LIST: ALPR0.5T2 PO; ASPI-1749 PO; ATOR20TA40 PO; BLOO1EAC40 MC; CLIN300C2 PO; DOCU-299 PO; GLUC-321 MC; GLUC-805 FS; HUMSLIDE SUBQ; LACT1.4C PO; LANC-947 MC; LEVO750T2 PO; LISI20TA29 PO; NORC10 PO; NYSTRC TP
[2021-06-13 00:46] VITALS: BP 172/88
[2021-06-13 01:41] LABS: BASOPHILS % (AUTO) 0.6 % (0.0-2.0); EOSINOPHILS # (AUTO) 0.2 K/uL (0-0.4); EOSINOPHILS % (AUTO) 2.7 % (0.0-4.0); HEMATOCRIT 30.4 % (36-52); HEMOGLOBIN 10.3 g/dL (12.0-18.0); LYMPHOCYTES # (AUTO) 1.4 K/uL (2.0-11.5); LYMPHOCYTES % (AUTO) 20.3 % (20.5-51.1); MEAN CORPUSCULAR HEMOGLOBIN 29 pg (27-31); MEAN CORPUSCULAR HGB CONC 34 g/dL (33-37); MEAN CORPUSCULAR VOLUME 84.5 fL (80-94); MONOCYTES # (AUTO) 0.7 K/uL (0.8-1.0); MONOCYTES % (AUTO) 9.6 % (1.7-9.3); NEUTROPHILS # (AUTO) 4.6 K/uL (1.8-7.7); NEUTROPHILS % (AUTO) 66.8 % (42.2-75.2); PLATELET COUNT (AUTO) 300 K/uL (140-450); RED CELL DISTRIBUTION WIDTH 13.4 % (11.6-13.7); WHITE BLOOD COUNT (AUTO) 6.9 K/uL (4.8-10.8)
[2021-06-13 01:56] LABS: ALBUMIN 2.3 g/dL (3.4-5.0); ANION GAP 11.4 (8-16); CARBON DIOXIDE 27.8 mmol/L (21-32); POTASSIUM 4.2 mmol/L (3.5-5.1); TOTAL BILIRUBIN 0.2 mg/dL (0.0-1.0)
[2021-06-13] MEDS ORDERED: NACL 0.9% 1,000 ML IV ONE (03:05)
[2021-06-13] MEDS ORDERED: NACL 0.9% 1,000 ML IV SCH (04:15)
[2021-06-13 05:26] VITALS: BP 160/95
== END 2021-06-13 04:21 | disposition admitted as inpatient to this hospital (09) ==
LOC: MED 00:45 → UNDOADMIN 04:21 → MTU 04:21 → UNDODISIN 05:24
DX: R07.89 Other chest pain (principal); N17.9 Acute kidney failure, unspecified; J12.9 Viral pneumonia, unspecified; E11.9 Type 2 diabetes mellitus without complications; I11.0 Hypertensive heart disease with heart failure; I50.9 Heart failure, unspecified; I25.10 Atherosclerotic heart disease of native coronary artery without angina pectoris; Z79.899 Other long term (current) drug therapy; Z79.2 Long term (current) use of antibiotics; Z79.4 Long term (current) use of insulin; Z79.891 Long term (current) use of opiate analgesic; Z79.82 Long term (current) use of aspirin; Z88.0 Allergy status to penicillin
CPT/HCPCS: 36415; 71045; 80053; 84484; 85025; 93005; 96360; 99285; J7030